=== PATIENT | female | born 1990 | race Caucasian/White ===

== ENCOUNTER 2019-07-21 16:51 | Emergency (ER) | payer MEDICAID ==
[~2019-07-21] VITALS: Ht 160 cm; Wt 82.1 kg
[2019-07-21 17:02] VITALS: Ht 160 cm; Wt 82.1 kg
[2019-07-21 18:51] VITALS: BP 138/78
== END 2019-07-21 18:51 | disposition home or self-care (01) ==
LOC: ED 16:51
DX: R51 Headache (principal); H53.149 Visual discomfort, unspecified
CPT/HCPCS: J0780; J1885